=== PATIENT | female | born 1960 | race Two or more races ===

== ENCOUNTER 2025-06-03 11:36 | Emergency (ER) | payer SELFPAY ==
[~2025-06-03] VITALS: Ht 162.6 cm; Wt 72.0 kg
[2025-06-03 12:46] VITALS: BP 129/68; PULSE 70; RESP 20; TEMP 98.7; O2SAT 98
--- NOTE | 2025-06-03 12:51 | ED.PDOC ---
History of Present Illness HPI Comments This is 64 year old female who comes in with pain in the left upper to lower back. Patient states she has been working harder than normal and has been doing a lot of lifting. Patient denies any symptoms of kidney stones denies any urinary symptoms at this time denies any trauma or incontinence, Chief Complaint: Back Pain Time Seen by MD: 12:47 Reviewed Notes: Nurses Notes, Medications, Allergies Allergies: Coded Allergies: Acetaminophen (Verified Allergy, Unknown, 06/03/25) Hydrocodone (Verified Allergy, Unknown, 06/03/25) Information Source: Patient Mode of Arrival: Ambulatory Past Medical History PAST MEDICAL HISTORY: DM, HTN Surgical History: Denies all surgeries Social History Smoker: Non-Smoker Alcohol: Denies ETOH Use Drugs: Denies Drug Use Lives In: Home Musculoskeletal: reports: back pain, muscle pain Physical Exam General Appearance: No Apparent Distress, Normal HEENT: Normal ENT Inspection, Pale Conjuntivae (R), Pharynx Normal, TMs Normal Neck: Full Range of Motion, Non-Tender, Normal Inspection, Supple Respiratory: Lungs Clear, None, No Respiratory Distress, Normal Breath Sounds Cardiovascular: Regular Rate/Rhythm Breast Exam: Deferred Gastrointestinal: Non Tender, Normal Bowel Sounds, Soft Genitalia: Deferred Pelvic: Deferred Rectal: Deferred Extremities: Normal inspection, Normal range of motion, Non-tender Neurologic: Alert, Other (Lower to midthoracic pain over the para thoracic muscles on the left side) Cerebellar Function: NOT DONE Reflexes: NOT DONE Skin: Dry, Warm Lymphatic: No Adenopathy Was a procedure done? Was a procedure done?: No Differential Dx Considerations may include: Shingles versus low back injury X-Ray, Labs, Meds, VS Vital Signs Date Time Temp Pulse Resp B/P (MAP) Pulse Ox O2 Delivery O2 Flow Rate FiO2 06/03/25 12:46 70 20 98 Room Air 06/03/25 12:46 98.7 70 20 129/68 (88) 98 98.7 06/03/25 11:44 97.9 79 18 122/74 99 97.9 Current Medications Medications (Trade) Dose Ordered Sig/Chavez Route Start Time Stop Time Status Last Admin Ketorolac Tromethamine (Toradol Injection) 60 mg ONCE ONCE IM 06/03/25 13:00 06/03/25 13:01 DC 06/03/25 13:08 X-Ray, Labs, Meds, VS Comment Patient seen and examined by me. Patient will be given a Toradol shot for her low back pain I have low doubts of it being urinary tract infection or kidney stone. Patient does admit to pulling a generator the other day. Back pain started after that. Patient was offered to do a workup which would include a CT of her lumbar spine but did not want to wait the timeframe here in the ER.. Patient did have some relief after the pain medicine. She will be sent home with a muscle relaxer. Patient is also requesting patch possibly since she can not take any stronger pain medicine.. Unable to give any other pain meds patient is allergic to [place]. Time of 1ST Reevaluation: 13:45 Reevaluation 1ST: Improved Patient Education/Counseling: Diagnosis, Treatment, Prognosis, Need For Follow Up Family Education/Counseling: No Family Present SEPSIS Sepsis Screen Date sepsis recognized/suspect: Jun 03, 2025 Time Sepsis recognized/suspect: 1147 Recent Procedure: No On Antibiotic Therapy: No Respiratory Rate >20: No Heart Rate >90: No Temp<36 C (96.8 F) or >38.3 C: No SBP <90 or MAP <65 mmHG: No New Acute Mental Status Change: No Is the patient on CPAP, BIPAP,: No Vital Signs Date Time Temp Pulse Resp B/P (MAP) Pulse Ox O2 Delivery O2 Flow Rate FiO2 06/03/25 12:46 70 20 98 Room Air 06/03/25 12:46 98.7 70 20 129/68 (88) 98 98.7 06/03/25 11:44 97.9 79 18 122/74 99 97.9 Medications Medications Dose Ordered Sig/Chavez Route Start Time Stop Time Status Last Admin Dose Admin Ketorolac Tromethamine 60 mg ONCE ONCE IM 06/03/25 13:00 06/03/25 13:01 DC 06/03/25 13:08 Departure 1 Departure Time of Disposition: 13:45 Impression: Primary Impression: Lumbar radiculopathy Additional Impression: Musculoskeletal pain Disposition: 01 HOME / SELF CARE / HOMELESS Condition: Good Additional Instructions: Take the muscle relaxer as needed, remember you can not drive once you have taken this medicine Alternate heat and ice to your lower back Do not do any lifting or repetitive motion to your back Use the lidocaine patch as needed Follow up with your regular doctor for further imaging, when you are ready to e-Prescriptions Lidocaine (Lidocan) 5 % Pad 5 % EX BID for 7 Days, #14 PAD Prov: ADRIANA BEAUL[facility]U [facility] 06/03/25 Ibuprofen Micronized (Ibuprofen) 600 Mg Tab 600 MG PO Q6HPRN PRN for 5 Days, #20 TAB Prov: ADRIANA [facility] 06/03/25 Cyclobenzaprine Hcl (Cyclobenzaprine Hcl) 10 Mg Tab 10 MG PO TID for 7 Days, #21 TAB Prov: ADRIANA [facility] 06/03/25 Discharged With: Self Critical Care Note Critical Care Time?: No Stability Stability form required: No ADRIANA [facility] Jun 03, 2025 12:51
[2025-06-03] MEDS: KETOROLAC TROMETH 60MG/2ML VIAL IM ONE (13:08)
[2025-06-03] MEDS ORDERED: IBUP1TAB5 PO (13:50)
[2025-06-03] MEDS ORDERED: CYCL-839 PO (13:50)
[2025-06-03] MEDS ORDERED: LIDO5PAD22 EX (13:50)
== END 2025-06-03 13:55 | disposition home or self-care (01) ==
LOC: ER 11:36
DX: M54.16 Radiculopathy, lumbar region (principal); E11.9 Type 2 diabetes mellitus without complications; I10 Essential (primary) hypertension; M79.18 Myalgia, other site; Z88.5 Allergy status to narcotic agent
CPT/HCPCS: 96372; 99283; J1885